=== PATIENT | male | born 1955 | race Caucasian/White ===

== ENCOUNTER 2021-08-28 17:11 | Inpatient (IN) | payer OTHER, BC ==
[~2021-08-28] VITALS: Ht 182.9 cm; Wt 89.9 kg
[~2021-08-28 17:11] MED LIST: ASPI81EC; BUPR75; DICY20; IBUP600; IPRA.03NI; LEVSOD25; LISHYD2012; METF500; METPHE10; PRAZ1; SERT50; SIMV40; VARDENAFIL; VARE1
[2021-08-28 18:36] LABS: BASOPHILS ABSOLUTE AUTO 0.11 K/mm3 (0.00-0.23); BASOPHILS PERCENT AUTO 1 % (0-2); EOSINOPHILS ABSOLUTE AUTO 0.11 K/mm3 (0.00-0.68); EOSINOPHILS PERCENT AUTO 1 % (0-6); Hematocrit 41.5 % (37.0-53.0); Hemoglobin 14.1 g/dL (13.5-17.5); IMMATURE GRAN ABSOLUTE AUTO 0.18 K/mm3 (0.00-0.10); IMMATURE GRAN PERCENT AUTO 1 % (0-1); LYMPHOCYTES ABSOLUTE AUTO 1.11 K/mm3 (0.84-5.20); LYMPHOCYTES PERCENT AUTO 6 % (21-46); MONOCYTES ABSOLUTE AUTO 1.51 K/mm3 (0.16-1.47); MONOCYTES PERCENT AUTO 8 % (4-13); Mean Corpuscular HGB 29.8 pg (26.0-34.0); Mean Corpuscular Volume 88 fL (80-100); Mean Platelet Volume 9.8 fL (9.1-12.4); NEUTROPHILS PERCENT AUTO 83 % (41-73); Platelet Count 303 K/mm3 (150-400); RDW Coefficient Variation 12.5 % (11.7-14.2); RDW Standard Deviation 40.5 fL (35.1-46.3); Red Blood Cell Count 4.73 M/mm3 (4.30-5.90); White Blood Cell Count 18.12 K/mm3 (4.00-11.30)
[2021-08-28 19:13] LABS: Alanine Aminotransfer (ALT/SGP 23 U/L (12-78); Albumin, Blood 2.9 g/dL (3.4-5.0); Albumin/Globulin Ratio 0.8 (0.8-1.8); Alk Phos 132 U/L (50-136); Anion Gap 12 mmol/L (6-16); Aspartate Aminotrans (AST/SGOT 17 U/L (12-37); Bilirubin, Total 0.4 mg/dL (0.1-1.0); Blood Urea Nitrogen 6 mg/dL (8-24); Bun/Creatinine Ratio 11.3 (12.0-20.0); CO2, Blood 21 mmol/L (21-32); Calcium, Blood 8.5 mg/dL (8.5-10.1); Chloride, Blood 100 mmol/L (98-108); Creatinine, Blood 0.53 mg/dL (0.60-1.20); Globulin, Blood 3.7 g/dL (2.2-4.0); Glomerular Filtration Rate >60 (60-); Glucose, Blood 344 mg/dL (70-99); Potassium, Blood 3.7 mmol/L (3.5-5.5); Sodium, Blood 133 mmol/L (136-145); Total Protein, Blood 6.6 g/dL (6.4-8.2)
[2021-08-28 21:00] LABS: Influenza A, PCR NEGATIVE (NEGATIVE); Influenza B, PCR NEGATIVE (NEGATIVE); Resp Syncytial Virus, PCR NEGATIVE (NEGATIVE); SARS-Cov-2 (COVID-19) PCR, MMC NEGATIVE (NEGATIVE)
[2021-08-28] MEDS ORDERED: METPHE10 PO (23:28)
[2021-08-28] MEDS ORDERED: ASPIR 8181 M1 PO (23:29)
--- NOTE | 2021-08-29 01:53 | NUR ---
PT ADMITTED FROM ER AT 2320. PT A&O X4. RIGHT FIFTH TOE NECROTIC AND DRAINING A SMALL AMOUNT OF SS FLUID. FOUL ODOR PRESENT. WOUND WRAPPED IN GAUZE AND KERLEX. PHOTOS TAKEN AND PLACED IN CHART. PT REPORTING 6/10 THROBBING PAIN AND MEDICATED WITH 0.5MG OF DILUADID PER EMAR. IV ABX INFUSING. PT REPORTS HE HASN'T CHECKED HIS BLOOD SUGAR IN APPROX 2 YEARS. PT ALSO CURRENTLY NOT ON ANY DIABETIC MEDICATION.
[2021-08-29 04:17] LABS: BASOPHILS ABSOLUTE AUTO 0.08 K/mm3 (0.00-0.23); BASOPHILS PERCENT AUTO 1 % (0-2); EOSINOPHILS ABSOLUTE AUTO 0.12 K/mm3 (0.00-0.68); EOSINOPHILS PERCENT AUTO 1 % (0-6); Hematocrit 36.9 % (37.0-53.0); Hemoglobin 12.3 g/dL (13.5-17.5); IMMATURE GRAN ABSOLUTE AUTO 0.19 K/mm3 (0.00-0.10); IMMATURE GRAN PERCENT AUTO 1 % (0-1); LYMPHOCYTES ABSOLUTE AUTO 1.76 K/mm3 (0.84-5.20); LYMPHOCYTES PERCENT AUTO 11 % (21-46); MONOCYTES ABSOLUTE AUTO 1.74 K/mm3 (0.16-1.47); MONOCYTES PERCENT AUTO 11 % (4-13); Mean Corpuscular HGB 29.7 pg (26.0-34.0); Mean Corpuscular HGB Conc 33.3 g/dL (31.5-36.5); Mean Corpuscular Volume 89 fL (80-100); Mean Platelet Volume 9.7 fL (9.1-12.4); NEUTROPHILS ABSOLUTE AUTO 12.63 K/mm3 (1.96-9.15); NEUTROPHILS PERCENT AUTO 76 % (41-73); Platelet Count 248 K/mm3 (150-400); RDW Coefficient Variation 12.5 % (11.7-14.2); RDW Standard Deviation 40.7 fL (35.1-46.3); Red Blood Cell Count 4.14 M/mm3 (4.30-5.90); White Blood Cell Count 16.52 K/mm3 (4.00-11.30)
[2021-08-29 04:46] LABS: Alanine Aminotransfer (ALT/SGP 22 U/L (12-78); Albumin, Blood 2.3 g/dL (3.4-5.0); Albumin/Globulin Ratio 0.6 (0.8-1.8); Alk Phos 111 U/L (50-136); Anion Gap 11 mmol/L (6-16); Aspartate Aminotrans (AST/SGOT 9 U/L (12-37); Bilirubin, Total 0.6 mg/dL (0.1-1.0); Blood Urea Nitrogen 6 mg/dL (8-24); Bun/Creatinine Ratio 10.9 (12.0-20.0); CO2, Blood 23 mmol/L (21-32); Calcium, Blood 8.3 mg/dL (8.5-10.1); Chloride, Blood 102 mmol/L (98-108); Creatinine, Blood 0.55 mg/dL (0.60-1.20); Globulin, Blood 4.1 g/dL (2.2-4.0); Glomerular Filtration Rate >60 (60-); Glucose, Blood 260 mg/dL (70-99); Potassium, Blood 3.3 mmol/L (3.5-5.5); Sodium, Blood 136 mmol/L (136-145); Total Protein, Blood 6.4 g/dL (6.4-8.2)
--- NOTE | 2021-08-29 05:25 | NUR ---
SHIFT SUMMARY: PT HAS BEEN NPO SINCE MIDNIGHT. IVF AND IV ABX INFUSING PER EMAR. PT COVERED WITH INSULIN PER SLIDING SCALE. VOIDING WELL IN URINAL. RIGHT FOOT REMAINS WRAPPED IN KERLEX. PAIN BEING MANAGED WITH 0.5MG OF DILAUDID. PLAN FOR OR TODAY FOR AMPUTATION.
--- NOTE | 2021-08-29 08:19 | NUR ---
LINA GAVE VERBAL PERMISSION FOR THIS GROCERY CLERK MARKING TO PROVIDE CARE
--- NOTE | 2021-08-29 10:49 | NUR ---
pt left for procedure at this time. abx sent with preop nurses.
--- NOTE | 2021-08-29 10:54 | NUR ---
PT TRANSPORTED TO [facility]. AGREES TO HAVING SURGERY ON RIGHT LEG, AWAITING TO SPEAK WITH SURGEON AND SIGN CONSENT.
--- NOTE | 2021-08-29 12:31 | NUR ---
08/29/21 1231 Michelle Veloz PATIENT IS ON SCHEDULE ANTIBIOTICS INCLUDING VANCO 1.5G ANDZOSYN 4.5G.
--- NOTE | 2021-08-29 14:51 | NUR ---
ARRIVAL TO UNIT S/P R BKA PT IS ALERT AND ORIENTED BUT STILL FEELS FOGGY. HE IS SLOW TO RESPOND AND TAKES SOME TIME TO REORIENT. STARTED IV FLUIDS AND CONTINUED HIS POTASSIUM INFUSION. THE PATIENT DENIES PAIN AT THIS TIME. STUMP SOCK REMAINS CDI. HEMOVAC WITH SANGUINOUS DRAINAGE IN TUBE. REMAINS COMPRESSED. SATS 98% ON ROOM AIR. CALL LIGHT IN REACH, PLACED BED ALARM ON FOR SAFETY. TOLERATING ICE WATER AT THIS TIME.
--- NOTE | 2021-08-29 18:05 | NUR ---
SHIFT SUMMARY S/P R BKA PT AA0X4. PAIN DIFFICULT TO MANAGE INITIALLY. PT REPORTS RELIEF AND ABILITY TO SLEEP AFTER INCREASE IN DOSAGE. PT CURRENTLY SLEEPING IN BED, ROOM AIR SATS 94% USES CPAP TOLERATING WELL. STUMP SOCK CDI. HEMOVAC COMPRESSED SANGUINOUS DRAINAGE REMAINS IN TUBE. PLAN WILL BE FOR PT/OT.
[2021-08-29 22:26] LABS: Vancomycin, Trough 7.8 ug/mL (5.0-10.0)
[2021-08-30 03:53] LABS: BASOPHILS ABSOLUTE AUTO 0.07 K/mm3 (0.00-0.23); BASOPHILS PERCENT AUTO 1 % (0-2); EOSINOPHILS ABSOLUTE AUTO 0.19 K/mm3 (0.00-0.68); EOSINOPHILS PERCENT AUTO 2 % (0-6); Hematocrit 33.4 % (37.0-53.0); Hemoglobin 11.1 g/dL (13.5-17.5); IMMATURE GRAN ABSOLUTE AUTO 0.21 K/mm3 (0.00-0.10); IMMATURE GRAN PERCENT AUTO 2 % (0-1); LYMPHOCYTES ABSOLUTE AUTO 1.96 K/mm3 (0.84-5.20); LYMPHOCYTES PERCENT AUTO 15 % (21-46); MONOCYTES ABSOLUTE AUTO 1.04 K/mm3 (0.16-1.47); MONOCYTES PERCENT AUTO 8 % (4-13); Mean Corpuscular HGB 30.1 pg (26.0-34.0); Mean Corpuscular HGB Conc 33.2 g/dL (31.5-36.5); Mean Corpuscular Volume 91 fL (80-100); Mean Platelet Volume 9.6 fL (9.1-12.4); NEUTROPHILS ABSOLUTE AUTO 9.36 K/mm3 (1.96-9.15); NEUTROPHILS PERCENT AUTO 73 % (41-73); Platelet Count 241 K/mm3 (150-400); RDW Coefficient Variation 12.5 % (11.7-14.2); RDW Standard Deviation 41.6 fL (35.1-46.3); Red Blood Cell Count 3.69 M/mm3 (4.30-5.90); White Blood Cell Count 12.83 K/mm3 (4.00-11.30)
[2021-08-30 04:18] LABS: Anion Gap 10 mmol/L (6-16); Blood Urea Nitrogen 4 mg/dL (8-24); Bun/Creatinine Ratio 7.6 (12.0-20.0); CO2, Blood 24 mmol/L (21-32); Calcium, Blood 8.2 mg/dL (8.5-10.1); Chloride, Blood 103 mmol/L (98-108); Creatinine, Blood 0.53 mg/dL (0.60-1.20); Glomerular Filtration Rate >60 (60-); Glucose, Blood 229 mg/dL (70-99); Potassium, Blood 3.6 mmol/L (3.5-5.5); Sodium, Blood 137 mmol/L (136-145)
--- NOTE | 2021-08-30 04:35 | NUR ---
SHIFT SUMMARY A/OX4, C/O 05/14 PHANTOM PAIN TO R. LOWER LIMB, MEDICATED PER EMAR. STUMP SOCK C/D/I, HEMOVAC WITH MINIMAL OUTPUT THIS SHIFT. CPAP T/O NIGHT WITH SATS GREATER THAN 92. VSS, NO ACUTE CHANGES AT THIS TIME. BED IN LOWEST POSITION WITH CALL LIGHT IN REACH. WILL CONTINUE TO MONITOR AND REPORT TO ONCOMING RN.
--- NOTE | 2021-08-30 11:58 | NUR ---
SPiritual Care visit. Pt. was in bed, with CPAP. After kind introductions the pt. requested I let him rest. Pt. was open to my return at a later time.
--- NOTE | 2021-08-30 17:37 | NUR ---
PATIENT CURRENTLY SITTING UP IN BED EATING HIS MEAL. NO SIGNS OR SYMPTOMS ACUTE DISTRESS NOTED AT THIS TIME. CALL LIGHT AND WATER IN EASY REACH. ABLE TO MAKE NEEDS AND WANTS KNOWN. AAOX4. DR BEEBE HERE TODAY TO SEE PATIENT, HE REMOVED THE DRAIN FROM HIS RIGHT STUMP. DRESSING TO RIGHT STUMP IS CDI. PATIENT HAS COMPLAINED OF PHANTOM PAIN IN THE RLE WHERE HIS FOOT WAS. MEDICATED FOR PAIN ALTERNATED PO AND IV PAIN MEDS PER ORDERS. SEE EMAR. IV ANTIBIOTICS CONTINUE PER ORDERS. VOIDING WELL. USES URINAL. PATIENT USES CPAP THROUGH THE DAY HE SLEEPS OFF AND ON. WILL CONTINUE TO MONITOR.
[2021-08-30 22:31] LABS: Vancomycin, Trough 11.8 ug/mL (5.0-10.0)
[2021-08-31 04:53] LABS: Anion Gap 8 mmol/L (6-16); Blood Urea Nitrogen 2 mg/dL (8-24); CO2, Blood 28 mmol/L (21-32); Calcium, Blood 7.7 mg/dL (8.5-10.1); Chloride, Blood 100 mmol/L (98-108); Creatinine, Blood 0.49 mg/dL (0.60-1.20); Glomerular Filtration Rate >60 (60-); Glucose, Blood 230 mg/dL (70-99); Potassium, Blood 3.1 mmol/L (3.5-5.5); Sodium, Blood 136 mmol/L (136-145)
[2021-08-31 04:54] LABS: Hematocrit 29.4 % (37.0-53.0); Hemoglobin 9.8 g/dL (13.5-17.5); Mean Corpuscular HGB 29.9 pg (26.0-34.0); Mean Corpuscular HGB Conc 33.3 g/dL (31.5-36.5); Mean Corpuscular Volume 90 fL (80-100); Mean Platelet Volume 9.6 fL (9.1-12.4); Platelet Count 213 K/mm3 (150-400); RDW Coefficient Variation 12.4 % (11.7-14.2); RDW Standard Deviation 41.1 fL (35.1-46.3); Red Blood Cell Count 3.28 M/mm3 (4.30-5.90); White Blood Cell Count 6.78 K/mm3 (4.00-11.30)
--- NOTE | 2021-08-31 06:49 | NUR ---
SUMMARY PT REPORTS PLEASED WITH PAIN CONTROL USING PO AND DILAUDID FOR BACK UP.
--- NOTE | 2021-08-31 14:28 | NUR ---
Spiritual Care Visit. Not much has changed. Pt. is alert and in his full-mask CPAP. Rapport is attempted, pt. requested that allow him to rest. Pt. welcomed a visit at a different time.
--- NOTE | 2021-08-31 17:39 | NUR ---
PATIENT CURRENTLY SITTING UP IN BED EATING HIS MEAL. NO SIGNS OR SYMPTOMS ACUTE DISTRESS NOTED. CALL LIGHT AND WATER IN EASY REACH. ABLE TO MAKE NEEDS AND WANTS KNOWN. PAIN MEDS CHANGED TODAY AND SEEM TO BE EFFECTIVE MORE. MEDICATED FOR PAIN PER ORDERS, SEE EMAR. IV ANTIBIOTICS CONTINUE. DR BEEBE CHANGED PATIENTS DRESSING TODAY, TOLERATED WELL. DRESSING SHOULD BE CHANGED AGAIN ON SATURDAY. PT AND OT WORKED WITH PATIENT TODAY AND HE DID WELL. AAOX4. WILL MONITOR.
[2021-08-31 22:10] LABS: Vancomycin, Trough 13.1 ug/mL (5.0-10.0)
--- NOTE | 2021-09-01 04:27 | NUR ---
PT IS ALERT AND ORIENTED X4. VOIDING USING URINAL. PAIN HAS IMPROVED WITH DILAUDID PO AND IV. CALLS APPROPRIATE FOR ASSISTANCE. VSS.
--- NOTE | 2021-09-02 14:47 | NUR ---
DR BEEBE IN FOR A DRESSING CHANGE
--- NOTE | 2021-09-02 15:59 | NUR ---
SHIFT SUMMARY PT A&OX4, VSS/RA, CPAP WITH SLEEP, CBGS COV PER EMAR. VOIDING USING URINAL, BM TODAY. AMB MOD ASSIST WITH FWW/GB, UP TO CHAIR FOR LUNCH. WORKED WITH PHYSICAL THERAPY AND IS ABLE TO TAKE A FEW STEPS. PAIN MANAGED WITH PERC 10 MG, TYLENOL, TORADOL, GABAPENTIN, PER EMAR. POD4 RLE BKA, DRESSING CHANGED TODAY BY SURGEON. WILL REPORT TO ONCOMING NOC RN.
[2021-09-03 04:46] LABS: BASOPHILS ABSOLUTE AUTO 0.03 K/mm3 (0.00-0.23); BASOPHILS PERCENT AUTO 1 % (0-2); EOSINOPHILS ABSOLUTE AUTO 0.28 K/mm3 (0.00-0.68); EOSINOPHILS PERCENT AUTO 5 % (0-6); Hematocrit 30.9 % (37.0-53.0); IMMATURE GRAN ABSOLUTE AUTO 0.03 K/mm3 (0.00-0.10); IMMATURE GRAN PERCENT AUTO 1 % (0-1); LYMPHOCYTES PERCENT AUTO 26 % (21-46); MONOCYTES ABSOLUTE AUTO 0.77 K/mm3 (0.16-1.47); MONOCYTES PERCENT AUTO 14 % (4-13); Mean Corpuscular HGB 29.5 pg (26.0-34.0); Mean Corpuscular HGB Conc 32.4 g/dL (31.5-36.5); Mean Corpuscular Volume 91 fL (80-100); Mean Platelet Volume 9.5 fL (9.1-12.4); NEUTROPHILS ABSOLUTE AUTO 2.89 K/mm3 (1.96-9.15); NEUTROPHILS PERCENT AUTO 53 % (41-73); Platelet Count 231 K/mm3 (150-400); RDW Coefficient Variation 12.5 % (11.7-14.2); RDW Standard Deviation 41.2 fL (35.1-46.3); Red Blood Cell Count 3.39 M/mm3 (4.30-5.90)
[2021-09-03 05:10] LABS: Alanine Aminotransfer (ALT/SGP 22 U/L (12-78); Albumin, Blood 2.2 g/dL (3.4-5.0); Albumin/Globulin Ratio 0.5 (0.8-1.8); Alk Phos 74 U/L (50-136); Anion Gap 3 mmol/L (6-16); Aspartate Aminotrans (AST/SGOT 20 U/L (12-37); Bilirubin, Total 0.3 mg/dL (0.1-1.0); Blood Urea Nitrogen 8 mg/dL (8-24); Bun/Creatinine Ratio 15.6 (12.0-20.0); CO2, Blood 34 mmol/L (21-32); Calcium, Blood 8.2 mg/dL (8.5-10.1); Chloride, Blood 97 mmol/L (98-108); Creatinine, Blood 0.51 mg/dL (0.60-1.20); Globulin, Blood 4.3 g/dL (2.2-4.0); Glomerular Filtration Rate >60 (60-); Glucose, Blood 285 mg/dL (70-99); Potassium, Blood 3.9 mmol/L (3.5-5.5); Sodium, Blood 134 mmol/L (136-145); Total Protein, Blood 6.5 g/dL (6.4-8.2)
--- NOTE | 2021-09-03 05:47 | NUR ---
MEDICATED WITH IV DILAUDID X'S 1 AND PERCOCET X'S 1 FOR PAIN MANAGEMENT, EFFECTIVE RELIEF, SLEPT WELL THROUGH NIGHT. DRESSING TO [facility] CLEAN DRY AND INTACT. CPAP IN PLACE. TELE: S/R 80 WITH BUNDLE BRANCH BLOCK. SAFETY MAINTAINED, CALL CASH IN REACH.
--- NOTE | 2021-09-03 17:56 | NUR ---
PATIENT CURRENTLY SITTING UP IN BED WITH NO SIGNS OR SYMPTOMS ACUTE DISTRESS NOTED. EATING HIS MEAL. CALL LIGHT AND WATER IN EASY REACH. ABLE TO MAKE NEEDS AND WANTS KNOWN. MEDICATED FOR PAIN TODAY PER ORDERS. PATIENT IS AAOX4. UP TO [facility] TODAY FOR BM. DRESSING TO RIGHT STUMP IS CDI. WILL MONITOR.
--- NOTE | 2021-09-04 03:47 | NUR ---
SHIFT SUMMARY: PATIENT AOX4, COMPLAINTS OF PAIN TO RLE MEDICATED, SEE EMAR. ABLE TO SLEEP WELL WITH CPAP ON.VOIDED IN URINAL WITH CLEAR YELLOW URINE. NO RESP./CV DISTRESS NOTED, WILL CONTINUE TO MONITOR.
--- NOTE | 2021-09-04 17:57 | NUR ---
PATIENT CURRENTLY EATING HIS MEAL. NO SIGNS OR SYMPTOMS ACUTE DISTRESS NOTED. AAOX4. ABLE TO MAKE NEEDS AND WANTS KNOWN. CALL LIGHT AND WATER IN EASY REACH. MEDICATED PER ORDERS FOR PAIN TODAY. [facility] BUT RECIEVED IV PAIN MEDS LAST NIGHT FOR PAIN. PATIENT NEEDS TO GO FOR 24 HRS OF NO IV NARCOTICS IN ORDER TO DC. PATIENT AWARE AND UNDERSTANDING. PO PAIN MEDS ARE HELPFUL. WILL MONITOR.
--- NOTE | 2021-09-05 03:58 | NUR ---
SHIFT SUMMARY: PATIENT AOX4, R FOREARM VASCULAR ACCESS PATENT/INFUSING WELL, SALINE LOCKED. NO IV NARCOTIC MEDICINE GIVEN THROUGHOUT THE SHIFT. COMPLAINTS OF RLE PAIN MEDICATED, SEE EMAR. ABLE TO SLEEP WELL. VOIDING CLEAR JEFFERY URINE. NO NEW UNUSUALITIES NOTED.
--- NOTE | 2021-09-05 05:10 | NUR ---
PT. REQUESTED PAIN MEDICINE 15 MINS. EARLY PER PT. IT IS " PRETTY BAD " REFERRING TO CURRENT PAIN LEVEL.
--- NOTE | 2021-09-05 18:32 | NUR ---
PATIENT CURRENTLY SITTING UP IN BED WITH NO SIGNS OR SYMPTOMS ACUTE DISTRESS NOTED. NO COMPLAINTS VOICED AT THIS TIME. CALL LIGHT AND WATER IN EASY REACH. ABLE TO MAKE NEEDS AND WANTS KNOWN. PATIENT MEDICATED WITH PO PAIN MEDS ONLY TODAY. [facility]. WILL MONITOR.
[2021-09-06 04:07] LABS: Hematocrit 30.5 % (37.0-53.0); Hemoglobin 9.9 g/dL (13.5-17.5); Mean Corpuscular HGB 29.9 pg (26.0-34.0); Mean Corpuscular HGB Conc 32.5 g/dL (31.5-36.5); Mean Corpuscular Volume 92 fL (80-100); Mean Platelet Volume 9.6 fL (9.1-12.4); Platelet Count 326 K/mm3 (150-400); RDW Coefficient Variation 12.8 % (11.7-14.2); RDW Standard Deviation 42.7 fL (35.1-46.3); Red Blood Cell Count 3.31 M/mm3 (4.30-5.90); White Blood Cell Count 8.53 K/mm3 (4.00-11.30)
--- NOTE | 2021-09-06 04:11 | NUR ---
SHIFT SUMMARY: PT. AOX4, SLEPT WELL, USES CPAP AT NIGHT. NO S/S OF RESP./CV DISTRESS NOTED, VOIDING WELL CLEAR YELLOW TO JEFFERY URINE. COMPLAINTS OF RLE PAIN MEDICATED, SEE EMAR. NO NEW ISSUES NOTED.
[2021-09-06 04:51] LABS: Alanine Aminotransfer (ALT/SGP 29 U/L (12-78); Albumin, Blood 2.5 g/dL (3.4-5.0); Albumin/Globulin Ratio 0.7 (0.8-1.8); Alk Phos 76 U/L (50-136); Anion Gap 7 mmol/L (6-16); Aspartate Aminotrans (AST/SGOT 23 U/L (12-37); Bilirubin, Total 0.3 mg/dL (0.1-1.0); Blood Urea Nitrogen 10 mg/dL (8-24); Bun/Creatinine Ratio 15.7 (12.0-20.0); CO2, Blood 30 mmol/L (21-32); Calcium, Blood 8.6 mg/dL (8.5-10.1); Chloride, Blood 98 mmol/L (98-108); Creatinine, Blood 0.64 mg/dL (0.60-1.20); Globulin, Blood 3.5 g/dL (2.2-4.0); Glomerular Filtration Rate >60 (60-); Glucose, Blood 239 mg/dL (70-99); Potassium, Blood 4.7 mmol/L (3.5-5.5); Sodium, Blood 135 mmol/L (136-145)
--- NOTE | 2021-09-06 17:49 | NUR ---
PATIENT CURRENTLY SITTING UP EATING HIS MEAL. NO SIGNS OR SYMPTOMS ACUTE DISTRESS NOTED. CALL LIGHT AND WATER IN EASY REACH. AAOX4. ABLE TO MAKE NEEDS AND WANTS KNOWN. [facility] [phone] AM [facility]. PATIENT IS AWARE OF THIS. PATIENT HAS BEEN MEDICATED WITH PO PAIN MEDS PER ORDERS TODAY. SEE EMAR. PATIENT WORKED WITH PT AND OT AND DID WELL. PATIENT IS VERY MOTIVATED WITH HIS RECOVERY. WILL MONITOR.
--- NOTE | 2021-09-07 04:25 | NUR ---
SHIFT SUMMARY: PT. AOX4, STUMP DRESSING & SOCK C/D/I. ABLE TO TRANSFER WELL FROM BED TO BEDSIDE COMMODE WITH THE USE OF WALKER & GAIT BELT ON 1 PERSON ASSIST. ABLE TO MAKE NEEDS KNOWN. NO S/S OF RESP./CV DISTRESS NOTED, SLEPT WELL. WILL CONTINUE TO MONITOR.
[2021-09-07 10:06] LABS: Influenza A, PCR NEGATIVE (NEGATIVE); Influenza B, PCR NEGATIVE (NEGATIVE); Resp Syncytial Virus, PCR NEGATIVE (NEGATIVE); SARS-Cov-2 (COVID-19) PCR, MMC NEGATIVE (NEGATIVE)
[2021-09-07 10:15] LABS: SARS-Cov-2 (COVID-19) Antigen Negative (NEGATIVE)
--- NOTE | 2021-09-07 11:28 | NUR ---
DISCHARGE SUMMARY POD9 R BKA, PAIN TOLERABLE c ORAL PAIN MEDICATIONS, 1 PERSON SBA TO GET UP c FWW, TOLERATING DIET, VOIDING/BM'S, [facility] AND ALL QUESTIONS ANSWERED, IV REMOVED PRIOR TO DISCHARGE AND NO OTHER IV ACCESS IN PLACE, PT WHEELED OUT VIA WC c ALL PERSONAL POSSESSIONS.
--- NOTE | 2021-09-07 14:54 | NUR ---
ASTON WITH SECURITY NOTIFIED THAT PT DISCHARGED W/O PICKING UP HIS WALLET AND RIDDLE AND THAT THE SLIP WAS HERE IN HIS CHART. PT GIVEN SECURITY'S PHONE NUMBER AND HE WILL CALL TO ARRANGE SOMEONE TO [employer].
--- NOTE | 2021-09-08 13:52 | NUR ---
TELEPHONE CALL WITH DAUGHTER SUZI REYES [phone], ESHA LUCAS WILL MUD TANK OPERATOR WALLET FROM [employer]. I LOCATED SECURITY TICKET AND CALLED ESHA TO ARRANGE MUD TANK OPERATOR OF TICKET AND MUD TANK OPERATOR OF WALLET FROM SECUR[employer]. TELEPHONE CALL WITH JUANITODARREN - HE PICKED UP WALLET ON 09/07 AT 1700, AFTER [facility] CALLED AND OK'D THE PICKUP. LM FOR SUZI THAT ESHA PICKED UP WALLET AND IT IS AT [facility]IT'S HOME, IN ACCORDANCE WITH DIRECTION FROM [facility].
== END 2021-09-07 11:10 | DRG 853 ==
LOC: ER 17:11 → SURS 22:50
PROVIDERS: Emergency Medicine; Internal Medicine; Orthopaedic Surgery; Physician Assistant; ADMIT Internal Medicine
PROC: 0Y6H0Z3 Detachment at Right Lower Leg, Low, Open Approach (ICD-10-PCS; principal; 2021-08-29 11:30)
DX: A41.9 Sepsis, unspecified organism (principal); M72.6 Necrotizing fasciitis; E11.52 Type 2 diabetes mellitus with diabetic peripheral angiopathy with gangrene; I96 Gangrene, not elsewhere classified; E87.6 Hypokalemia; I10 Essential (primary) hypertension; E78.5 Hyperlipidemia, unspecified; Z79.82 Long term (current) use of aspirin; Z79.899 Other long term (current) drug therapy; Z87.891 Personal history of nicotine dependence; Z20.822 Contact with and (suspected) exposure to COVID-19; Z88.8 Allergy status to other drugs, medicaments and biological substances; Z88.6 Allergy status to analgesic agent; G47.33 Obstructive sleep apnea (adult) (pediatric)
CPT/HCPCS: 0241U; 36415; 73552; 73590; 73630; 73700; 80048; 80053; 80202; 82947; 83036; 83605; 84132; 85025; 85027; 87040; 87426; 88307; 88312; 90686; 93005; 93010; 93926; 94660; 94762; 96365; 96367; 96375; 97110; 97161; 97166; 97530; 97535; 99285-25; A9270; C9113; C9803; J1170; J1650; J1815; J1885; J2270; J2370; J2405; J2543; J2704; J2765; J3010; J3370; J7030; J7040; J7050; J7120

== ENCOUNTER 2025-03-05 21:16 | Emergency (ER) | payer OTHER ==
[~2025-03-05] VITALS: Ht 182.9 cm; Wt 82.1 kg
[~2025-03-05 21:16] MED LIST changes: +ASPIR 8181 M1 PO; +METPHE10 PO
[2025-03-05 22:15] VITALS: BP 162/62
[2025-03-05] MEDS ORDERED: Benadryl Itch28.3 G1 TOP (22:23)
== END 2025-03-05 23:02 | disposition home or self-care (01) ==
LOC: ER 21:16
DX: L23.3 Allergic contact dermatitis due to drugs in contact with skin (principal); T49.95XA Adverse effect of unspecified topical agent, initial encounter; I10 Essential (primary) hypertension; E11.9 Type 2 diabetes mellitus without complications; G47.30 Sleep apnea, unspecified; Z87.891 Personal history of nicotine dependence; Z89.511 Acquired absence of right leg below knee; Z88.0 Allergy status to penicillin; Z79.82 Long term (current) use of aspirin; Z79.899 Other long term (current) drug therapy
CPT/HCPCS: 99283